=== PATIENT | female | born 1950 | race Caucasian/White ===

== ENCOUNTER → 2016-11-16 | Outpatient (CLI) | payer OTHER ==
[~2016-11-16] MED LIST: ASPEC81 PO; ATEN-173 PO; B-COTAB18 PO; CLC100 PO; CLTP PO; COEN10CA2 PO; DILT240C57 PO; FRC PO; HYDR25TA4 PO; LOSA50TA6 PO; LPT/40 PO; MAGN1TAB19 PO; MISCCAP80 PO; MULT-513 PO; OMEG10007 PO; TRAZ50TA35 PO
--- NOTE | 2016-11-16 12:44 | MAMMOGRAPHY REPORT ---
BILATERAL DIGITAL SCREENING MAMMOGRAM WITH CAD: 11/16/2016 CLINICAL HISTORY: Routine screening. TECHNIQUE: Current study was also evaluated with a Computer Aided Detection (CAD) system. Bilateral CC and MLO views were obtained. COMPARISON: Comparison is made to exams dated: 11/16/2015 mammogram, 09/06/2014 mammogram, 09/03/2013 m ammogram, 09/01/2012 mammogram, 08/14/2011 mammogram, and 08/07/2010 mammogram - [facility]ter. BREAST COMPOSITION: There are scattered areas of fibroglandular density in both breasts. FINDINGS: No suspicious masses, calcifications, or areas of architectural distortion are noted in ei ther breast. There has been no significant interval change compared to prior exams. IMPRESSION: ACR BI-RADS CATEGORY 1: NEGATIVE There is no mammographic evidence of malignancy. A 1 year screening mammogram is recommended. The pa tient will receive written notification of the results. Approximately 10% of breast cancers are not detected with mammography. A negative mammographic report should not delay biopsy if a clinically suggestive mass is present. Desi Carlson M.D. ah/:11/16/2016 09:57:41 Armature Connector: Librado MCNEIL(R)(M), [facility] letter sent: Normal 1/2 BI-RADS Code: ACR BI-RADS Category 1: Negative
== END | disposition home or self-care (01) ==
LOC: C.MAMM 08:58
PROVIDERS: ATTEND Physician Assistant
DX: Z12.31 Encounter for screening mammogram for malignant neoplasm of breast (principal)

== ENCOUNTER 2024-03-03 10:39 | Observation (INO) ==
--- NOTE | 2024-01-27 14:40 | PAT Medication Instructions ---
Medication Instructions Date of Service January 27, 2024 Home Medications atorvastatin 40 mg tablet 40 mg PO HS diltiazem HCl 240 mg capsule,extended release 24 hr 240 mg PO QAM aspirin 81 mg tablet,delayed release (Adult Aspirin Regimen) 81 mg PO QPM carvedilol 12.5 mg tablet 12.5 mg PO BID furosemide 20 mg tablet (Lasix) 20 mg PO UD oxybutynin chloride 5 mg tablet 5 mg PO HS terazosin 1 mg capsule 1 mg PO HS cholecalciferol (vitamin D3) 50 mcg (2,000 unit) capsule (Vitamin D3) 50 mcg PO QAM lorazepam 0.5 mg tablet 0.25 mg PO HS PRN Sleep losartan 100 mg tablet 100 mg PO QAM melatonin 1 mg tablet 1 mg PO HS ondansetron 4 mg disintegrating tablet 4 mg PO Q8H PRN Nausea And Vomiting ASK your prescriber and surgeon aspirin 81 mg tablet,delayed release (Adult Aspirin Regimen) 81 mg PO QPM DO NOT take the morning of surgery furosemide 20 mg tablet (Lasix) 20 mg PO UD cholecalciferol (vitamin D3) 50 mcg (2,000 unit) capsule (Vitamin D3) 50 mcg PO QAM losartan 100 mg tablet 100 mg PO QAM Take morning of surgery With a small sip of water, OTHERWISE NOTHING TO EAT OR DRINK AFTER MIDNIGHT: diltiazem HCl 240 mg capsule,extended release 24 hr 240 mg PO QAM carvedilol 12.5 mg tablet 12.5 mg PO BID ondansetron 4 mg disintegrating tablet 4 mg PO Q8H PRN Nausea And Vomiting (if needed) Take evening before surgery atorvastatin 40 mg tablet 40 mg PO HS carvedilol 12.5 mg tablet 12.5 mg PO BID oxybutynin chloride 5 mg tablet 5 mg PO HS terazosin 1 mg capsule 1 mg PO HS lorazepam 0.5 mg tablet 0.25 mg PO HS PRN Sleep (if needed) melatonin 1 mg tablet 1 mg PO HS ondansetron 4 mg disintegrating tablet 4 mg PO Q8H PRN Nausea And Vomiting (if needed) Other Notes If you have any questions please call us at [phone] or [phone] or [phone] or [phone]
--- NOTE | 2024-02-03 09:52 | Anesthesiology Consultation ---
Date of Service February 03, 2024 Assessment & Plan (1) Encounter for pre-operative examination: - cardiology office visit 12/20/23 [facility]: "...labile hypertension, palpitations consistent with symptomatic atrial and ventricular ectopy...odd sensation of chest pain when lying flat, localized under the left breast...subsides when the patient changes position to either side...occasional swelling in the legs...hypertension well controlled...occasional low readings associated with feeling "fluttery" continue current medication regimen...no associated exertional chest pain or shortness of breath...no immediate intervention required, but patient should monitor symptoms and report any changes-likely MSK...knee replacement...no additional cardiac workup required as recent echocardiogram was normal and patient has no concerning cardiac symptoms...low risk for perioperative cardiac complications..." - Outpatient joint assessment: Patient is currently scheduled for inpatient pathway. If re-evaluated and patient/surgeon requests outpatient pathway, patient is not ideal candidate for outpatient joint program from anesthesia standpoint pending surgeon's office assessment of pt motivation/support/completion of same day joint program preop requirements. Chart Review Chart Review: Acceptable Risk for Surgery and Patient seen in Pre Admission Testing Teaching & Discussion Pre-Anesthesia Teaching/Discussion Notes: Instructed NPO after midnight before surgery, except medications with 15 cc of water. Medication instructions provided according to the PAT guidelines. History Surgery Operation Date: 03/03/24 11:00 Proposed Procedures p Right Total Knee Arthroplasty - Jaden August MD Height/Weight Height: 5 ft 1 in Weight: 87.4 kg Allergies Allergy/AdvReac Type Severity Reaction Status Date / Time moxifloxacin Allergy Intermediate HIVES Verified 01/22/24 08:24 Penicillins Allergy Intermediate HIVES Verified 01/22/24 08:24 Sulfa (Sulfonamide Allergy Intermediate Hives Verified 01/22/24 08:24 Antibiotics) sulfamethoxazole [Bactrim] Allergy Intermediate HIVES Verified 01/22/24 08:24 trimethoprim [Bactrim] Allergy Intermediate HIVES Verified 01/22/24 08:24 Medications Home Medications Medication Instructions Recorded Confirmed Last Taken atorvastatin 40 mg tablet 40 mg PO HS 06/06/21 01/22/24 06/08/21 diltiazem HCl 240 mg 240 mg PO QAM 06/06/21 01/22/24 06/09/21 capsule,extended release 24 hr aspirin 81 mg tablet,delayed 81 mg PO QPM 11/21/23 01/22/24 Unknown release (Adult Aspirin Regimen) carvedilol 12.5 mg tablet 12.5 mg PO BID 11/21/23 01/22/24 Unknown furosemide 20 mg tablet (Lasix) 20 mg PO UD 11/21/23 01/22/24 Unknown oxybutynin chloride 5 mg tablet 5 mg PO HS 11/21/23 01/22/24 Unknown terazosin 1 mg capsule 1 mg PO HS 11/21/23 01/22/24 Unknown cholecalciferol (vitamin D3) 50 50 mcg PO QAM 01/22/24 01/22/24 Unknown mcg (2,000 unit) capsule (Vitamin D3) lorazepam 0.5 mg tablet 0.25 mg PO HS PRN Sleep 01/22/24 01/22/24 Unknown losartan 100 mg tablet 100 mg PO QAM 01/22/24 01/22/24 Unknown melatonin 1 mg tablet 1 mg PO HS 01/22/24 01/22/24 Unknown ondansetron 4 mg disintegrating 4 mg PO Q8H PRN Nausea And Vomiting 01/22/24 01/22/24 Unknown tablet Past Medical History Medical History Arthritis Depression situational Fuchs' corneal dystrophy bilat eyes History of COVID-19 (~07/2023) denies hospitalization, no residual symptoms History of diverticulitis last flare 2013 History of kidney cancer dx ~2016, sx only Hyperlipidemia Hypertension controlled, stable per pt OAB (overactive bladder) Periodic heart flutter f/u dr. farris, [facility] Sleep apnea CPAP-compliant Patient denies h/o stroke, seizures, heart attack, heart failure, DM, blood clots/DVTs or blood transfusions. Exercise / Class Metabolic Activity II 4-5 Yardwork/Stairs/Walk up hill (denies chest discomfort or shortness of breath with one flight of stairs) Past Family History Family History Sister Family history of diabetes mellitus Other No family history of adverse response to anesthesia Past Surgical History Surgical History History of arthroscopy left knee History of bilateral tubal ligation History of bunionectomy left History of cataract surgery rt/lt History of colonoscopy History of dilatation and curettage History of hysterectomy History of kidney surgery right, ~2016, to remove a small portion of kidney due to cancer History of tonsillectomy History of tooth extraction History of total hip arthroplasty right Kidney tumor tumor removed S/P thyroid biopsy ~2019, benign Past Anesthesia History Other (crying post-op; sister difficult intubation) History of PONV History of PONV and Hx of Motion Sickness Social History Smoking Status: Former smoker tobacco type: cigarettes Do You Dip or Chew Tobacco: No Smoking End Date: 40 years ago Hx Alcohol Use: Yes Alcohol type: wine alcohol intake frequency: holidays/special occasions only Hx Substance Use: No substance use type: does not use Review of Systems Patient denies chest pain, shortness of breath, dyspnea on exertion, reflux, fever, chills, cough, wheezing, or palpitations. Physical Exam Vital Signs Vitals BP 145/81 P 65 TEMP 97.9 SP02 96% on RA RESP 18 Physical Patient resting comfortably in chair in no acute distress, alert and oriented, responding appropriately throughout visit Full cervical extension range of motion without pain TMD < 3 finger breadths Mallampati Score 2 Dentition: several caps/crowns, denies chipped or loose teeth, implants or bridges Lungs: normal respiratory effort. Good air movement, clear throughout to auscultation, no adventitious breath sounds Cardiac: regular rate and rhythm, no murmurs noted Carotid arteries: negative bruit bilat Lab Results Anesthesia Preop Results Results Anesthesia Widget: WBC 7.10 K/ul (4.8-10.8) 02/03/24 Hgb 12.8 g/dl (12.0-16.0) 02/03/24 Hct 38.5 % (37.0-47.0) 02/03/24 Plt 290 K/uL (130-400) 02/03/24 Na 139 mmol/L (136-145) 02/03/24 K 4.6 mmol/L (3.5-5.1) 02/03/24 Cl 104 mmol/L (98-107) 02/03/24 CO2 29 mmol/L (21-32) 02/03/24 BUN 23 mg/dl (6-23) 02/03/24 Creat 0.84 mg/dl (0.6-1.2) 02/03/24 Glucose Level 82 mg/dl (70-99(Fasting)) 02/03/24 PT 10.9 Seconds (9.0-12.0) 02/03/24 PTT 29 Seconds (21-31) 02/03/24 INR 1.0 (0.9-1.1) 02/03/24 Blood Type O Positive 02/03/24 Antibody Screen NEGATIVE 02/03/24 Testing Electrocardiogram Date: 12/20/23 NSR, rate 73 bpm Incomplete RBBB Chest X-Ray Date: 02/03/24 No acute chest disease. Cardiomegaly is noted. Echocardiogram Date: 02/14/23 EF 55-59% Normal LV wall motion Mild cLVH Mild mitral regurgitation Mild tricuspid regurgitation PASP 35-40 mmHg
[~2024-03-03 10:39] MED LIST changes: -ASPEC81 PO; -ATEN-173 PO; -B-COTAB18 PO; +BUPIVACAINE 0.5 % 5 MG/1 ML PF 10ML VIAL ONE; -CLC100 PO; -CLTP PO; -COEN10CA2 PO; -DILT240C57 PO; -FRC PO; -HYDR25TA4 PO; -LOSA50TA6 PO; -LPT/40 PO; -MAGN1TAB19 PO; -MISCCAP80 PO; -MULT-513 PO; -OMEG10007 PO; +ROPIVACAINE 0.5% 5 MG/ML 30 ML VIAL ONE; -TRAZ50TA35 PO
[2024-03-03] MEDS ORDERED: PROPOFOL IV EMULSION 10 MG/ML 100 ML VIAL IV ONE (11:01)
[2024-03-03] MEDS ORDERED: MIDAZOLAM HCL 1 MG/ML 2ML VIAL ONE (11:01)
[2024-03-03] MEDS ORDERED: fentaNYL citrate PF 100 MCG/2 ML VIAL ONE (11:01)
[2024-03-03] MEDS: CeleBREX 200 MG CAP PO SCH (11:03)
[2024-03-03] MEDS: ACETAMINOPHEN 500 MG TAB PO SCH ×2 (11:30→20:43)
[2024-03-03] MEDS: METOCLOPRAMIDE HCL 10 MG TABLET PO SCH (11:31)
[2024-03-03] MEDS: LR 60ML/HR IV SCH (11:31)
[2024-03-03] MEDS: LR 500ML BOLUS, THEN 15ML/HR IV SCH (11:31)
[2024-03-03] MEDS: FAMOTIDINE 20 MG TAB PO SCH (11:31)
[2024-03-03] MEDS ORDERED: ePHEDrine sulfate 50 MG/ML AMP IV PRN (12:05)
[2024-03-03] MEDS ORDERED: ONDANSETRON INJ 2 MG/ML 2 ML VIAL IV PRN (12:05)
[2024-03-03] MEDS ORDERED: ATROPINE SULFATE 0.1 MG/ML 10ML SYR IV PRN (12:05)
[2024-03-03] MEDS ORDERED: fentaNYL citrate PF 100 MCG/2 ML VIAL IV PRN (12:05)
--- NOTE | 2024-03-03 13:01 | History & Physical Bridge Note ---
Date of Service March 03, 2024 History & Physical Bridge Note I have examined the patient, reviewed the History & Physical and in the interval since the performance of the History & Physical I have noted the following changes of clinical significance: no changes noted
[2024-03-03] MEDS: ceFAZolin 2000MG 2,000 MG/15 ML SYR IV SCH ×2 (13:08→20:44)
[2024-03-03] MEDS ORDERED: PROPOFOL IV EMULSION 10 MG/ML 20 ML VIAL IV ONE (13:16)
[2024-03-03] MEDS: ORTHO JOINT ANESTHETIC ONE (13:28)
[2024-03-03] MEDS: ROPIV 0.5% 246mg, Ketorolac 30mg, EPINEPHrine 0.5mg in NSS INFIL SCH (13:28)
[2024-03-03] MEDS: TRANEXAMIC ACID 1,000 MG **IV Intra-op IV SCH (13:42)
--- NOTE | 2024-03-03 14:33 | Operative Report ---
PG Post Operative Report Pre & Post Diagnosis Operation Date: 03/03/24 12:30 Pre-Op Diagnosis: Right Knee Degenerative Joint Disease Post-Op Diagnosis: Right Knee Degenerative Joint Disease I identified the patient and participated in the time-out.: Yes Procedure Operation Date: 03/03/24 12:30 Actual Procedures p Right Total Knee Arthroplasty(Right) - Jaden August MD Surgeon Jaden August MD Turnaround Planner SOFIE Kraft Estimated Blood Loss 30 Findings Consistent with Post-Op Diagnosis Operative findings were advanced right knee DJD. She had the extensive grade 4 [id number] disease most severe in the medial compartment. She has slight varus deformity to her knee. Small to moderate-sized knee effusion. Specimens Right knee sent for pathology. Anesthesia Type Spinal MAC Complications none Disposition Accompanied Patient To Recovery: No Indications The patient is a 73-year-old female is had a long history of bilateral knee pain discomfort described to gotten worse over time. She been through extensive conservative treatment over the past several years which became less successful over time. The right knee was hurt more than the left. X-rays show advanced knee arthritis. She elected proceed with right total knee arthroplasty. Description of Procedure Operative implants consist of: 1 Biomet Vanguard size 62.5 right posterior stabilized femoral component. 2. Biomet size 63 tibial tray. 3. 10 mm posterior stabilized polyethylene insert. 4. 31 x 8 all poly patella. The patient was taken the op room, identified, placed on the operating table in supine position. All contact areas were appropriately padded. IV antibiotics fibra anesthesia team. A spinal anesthetic and adductor canal block had been Weida in the holding area. A Noyola catheter was placed in sterile fashion. Right thigh turn was then placed to the right lower extremity was then prepped and draped in usual sterile fashion. The right leg was elevated and exsanguinated with use of an Esmarch and the turn was placed at 300 mmHg. An anterior approach to the right knee was then performed to longitudinal incision centered over the patella. Sharp dissection was got through subcutaneous tissue down the extensor mechanism. A medial parapatellar arthrotomy incision was made. Some subperiosteal dissection was carried out medially. The fat pad was resected from his patella tendon. The lateral patellofemoral ligament was released. Patella subluxated laterally and the knee was flexed. The osteophytes taken off distal femur. ACL and PCL were then released from distal femur the tibia subluxated anteriorly. The external tibial alignment jig was then placed on the anterior face the tibia and adjusted 12 mm medially. The proximal tibial cut was made remove about 2 mm from the medial side. The tibia sized to a size 63. Attention drawn the femur. The distal femur then with a sharp drill. Intramedullary canal was suction. A right 5 degree valgus cutting guide was placed. The distal femoral cutting block was pinned in place. This femoral cut was made to take an additional 3 mm of bone off distal femur. The femur was then sized to a size 62.5. The AP cutting block was pinned parallel to the epicondylar axis which was 3 degrees of external rotation. The anterior cut, anterior chamfer, posterior cut, posterior chamfer cuts were made. The box cutting guide was placed and adjusted slightly laterally. The box cut was made. The knee was flexed. The remnants of the medial and lateral menisci were excised. The osteophytes taken off the posterior aspect the femur. A trial femoral component was placed. The tibial tray was pinned Mariluz external rotation and the drill and stem punch were used to create defect in proximal tibia for the tibial tray. The knee was then trialed and the 10 mm insert fit most appropriately. Attention drawn the patella. The patella was cleaned of all soft tissues. Patella thickness measured 20 mm in thickness was cut down to 13. Was sized to a size 31 patella. The lug holes were drilled for 31 patella. The lateral osteophytes removed. Patella button was placed. Knee was taken through range of motion patella tracked nicely with no thumbs test. Attention drawn to placing permanent components. All trial components were removed. A bone plug was placed into the distal femur limit blood loss. Double batch Palacos G cement was mixed. A Biomet Vanguard size 62.5 right posterior stabilized femoral component, a size 63 tibial tray, a 10 mm posterior stabilized polyethylene insert, and a 31 x 8 all poly patella then cemented in place. The knee was brought out into full extension till cement hardened. Final cement check was then performed. The pericapsular tissues were injected with total of 100 cc of Ortho mix. The patient did receive 1 g of tranexamic acid. The tourniquet was then let down for final tourniquet time 49 minutes. Hemostasis assured use electrocautery. Extensor Meclomen then closed with combination 1 PDS suture #1 Vicryl suture in a [id number] fashion. Extensor Meclomen checked found to be intact with the subcutaneous tissue then closed with 2 Dexon suture in a buried interrupted fashion skin was closed skin elida. Leg was then cleaned and dried and a sterile dressing was Xeroform, 4 fours, sterile cast padding, Kervin bandage were applied. Patient then transferred to the recovery room in stable condition. The patient tolerated the procedure well and there were no complications. Aj Kraft, my physician urology physician assistant, was present for the entire procedure. His assistance was essential and required for appropriate patient positioning, prepping and draping, surgical exposure, performing the technical details of the operation, placement the implants, closure of the wound, and placement of the sterile bandage. I attest to the content of the Intraoperative Record and any orders documented therein. Any exceptions are noted below.
--- NOTE | 2024-03-03 14:54 | XRay Report ---
XR knee RT 1 or 2V routine HISTORY: 73 years-old Female Surgical Post Op right knee arthroplasty COMPARISON: Radiographs 02/03/2024 TECHNIQUE: 2 views of the right knee FINDINGS: Total arthroplasty with patellar resurfacing. Anterior midline skin elida with expected postoperati ve soft tissue swelling and deep tissue air. No acute fracture or unexpected opaque foreign bodies. IMPRESSION: Total joint arthroplasty with expected postoperative changes. ACT 112: Negative or not required by law. The above report was generated using voice recognition software. It may contain grammatical, syntax o r spelling errors. Electronically signed by: Hernandez Delvalle M.D. 03/03/2024 2:52 PM
[2024-03-03] MEDS ORDERED: ALUMINUM/MAGNESIUM SUSP 30 ML UDC PO PRN (15:33)
[2024-03-03] MEDS ORDERED: MAGNESIUM HYDROXIDE SUSP 30 ML UDC PO PRN (15:33)
[2024-03-03] MEDS ORDERED: HYDROmorphone INJ 0.5 MG/0.5 ML SYR IV PRN (15:33)
[2024-03-03] MEDS ORDERED: NALOXONE HCL 0.4 MG/1 ML VIAL/CARP IV PRN (15:33)
[2024-03-03] MEDS ORDERED: bisacodyL 10 MG SUPP PR PRN (15:33)
--- NOTE | 2024-03-03 15:41 | Anesthesiology Progress Note ---
Date of Service March 03, 2024 Anesthesia Post Procedure Vital Signs Vital Signs: Temp Pulse Pulse Resp BP BP Pulse Ox 03/03/24 15:34 97.5 F L 52 L 16 155/78 H 99 03/03/24 15:20 59 L 20 143/84 H 99 03/03/24 15:10 59 L 19 142/77 H 98 03/03/24 15:00 97.7 F 55 L 20 136/70 94 03/03/24 14:50 56 L 19 127/69 94 03/03/24 14:40 62 18 126/75 96 03/03/24 14:32 97.2 F L 70 24 112/82 96 03/03/24 11:15 98.6 F 75 24 183/84 H 98 O2 Del Method 03/03/24 15:34 Room Air 03/03/24 15:20 Room Air 03/03/24 15:10 Room Air 03/03/24 15:00 Room Air 03/03/24 14:50 Room Air 03/03/24 14:40 Room Air 03/03/24 14:32 Room Air 03/03/24 11:15 Room Air Transfer of Care Handoff Completed per policy Notes Mental Status: alert / awake / arousable and participated in evaluation Patient Amnestic to Procedure: Yes Nausea / Vomiting: adequately controlled Pain: adequately controlled Airway Patency, RR, SpO2: stable & adequate BP & HR: stable & adequate Hydration State: stable & adequate Neuraxial Anesthesia: was administered and sensory block is resolving Anesthetic Complications: no major complications apparent and Pt Satisfied with anesthetic care
[2024-03-03] MEDS: KETOROLAC TROMETHAMINE 15 MG/ML VIAL IV SCH (17:09)
[2024-03-03] MEDS: carvediloL 12.5 MG TAB PO SCH (17:15)
[2024-03-03] MEDS: ASCORBIC ACID 500 MG TAB PO SCH (17:16)
--- OUTSIDE RECORDS SUMMARY | 2024-03-03 18:31 | External Medical Summary | Summary of Care ---
Author Name Unknown Organization [facility] [address] [facility] [address] Phone [phone] Care Team Providers Care Neurology Professor Name Role Phone Kerry Wise DO Primary Care Provider Encounter Details Date Type Department Care Team (Late st Contact Info) Description 02/02/2024 Result Scan Unspecified Department Kathy Fajardo DO [address] [place] [address] <No scans attached> Allergies Active Allergy Reactions Criticality Noted Date Comments Alendronate Muscle pain 05/30/2017 Muscle pain in arms came on very quickly per patient Hydrochlorothiazide 05/24/2022 Hyponatremia Moxifloxacin Unknown Low 07/29/2001 Avelox Penicillins Hives Medium 08/28/1999 Sulfa Antibiotics Hives Low 03/08/2000 Venlafaxine Hydrochloride Hives Low 08/28/1999 documented as of this encounter (statuses as of 02/21/2024) Medications triamcinolone acetonide (ARISTOCORT) 0.1 % cream Apply topically to affected area 2 times a day. To affected area. 15 g 5 8 Active Denosumab 60 MG/ML Subcutaneous SolutionIndicati ons:every 6mos Inject 60 mg under the skin once. Active Elastic Bandages & Supports (MEDICAL COMPRESSION STOCKINGS) MISCIndications: Varicose veins of both legs with edema 20mm to 30mm Knee high Wear during the day and take off at night for swelling. 2 Each 9 Active Aspirin EC 81 MG Oral Tablet Delayed Release Take by mouth 1 Tablet in the morning. 2 Active Additional Information Patient taking differently:81 mg Oral Daily(AM),Takes in the evening., Reported on 02/11/2024 Vitamin D (Cholecalciferol ) 50 MCG (2000 UT) Oral Capsule Take 2,000 Units by mouth in the morning. Active Melatonin 1 MG Oral Tablet Take 1 Tablet by mouth at bedtime. Active Triamcinolone Acetonide 0.5 % External Cream (Aristocort)Hyacinth cations:Skin lesion Apply topically to affected area 2 times a day. To affected area. 15 g 1 4 Active oxyBUTYnin Chloride ER 5 MG Oral Tablet Extended Release 24 Hour (Ditropan XL) Take 1 Tablet by mouth in the morning. 90 Tablet 3 4 Active Additional Information Patient taking differently:5 mg Oral Daily(AM),Takes in the evening., Reported on 02/11/2024 dilTIAZem HCl ER Beads 240 MG Oral Capsule Extended Release 24 HourIndications: HTN, goal below 140/90 Take 1 Capsule by mouth in the morning. 90 Capsule 3 4 Active Terazosin HCl 1 MG Oral Capsule (Hytrin) Take 1 Capsule by mouth at bedtime. 90 Capsule 3 4 Active Ketoconazole 2 % External CreamIndications :Cutaneous candidiasis Apply topically to affected area 2 times a day for 14 days. Apply to vulva 30 g 1 4 Active Ondansetron HCl 4 MG Oral TabletIndication s:Nausea without vomiting Take 1 Tablet by mouth every 8 hours as needed for Nausea. 30 Tablet 4 Active Carvedilol 12.5 MG Oral Tablet (Coreg) Take 1 Tablet by mouth in the morning and 1 Tablet before bedtime. 204 Tablet 3 4 Active Atorvastatin Calcium 40 MG Oral Tablet (Lipitor)Indicat ions:Asymptomati c carotid artery stenosis, unspecified laterality,Dysli pidemia, goal LDL below 100 Take 1 Tablet by mouth at bedtime. 90 Tablet 3 4 Active Furosemide 20 MG Oral Tablet (Lasix)Indicatio ns:HTN, goal below 140/90 Take 1 Tablet by mouth once a day on Saturday, Saturday, and Saturday only. 40 Tablet 3 4 Active documented as of this encounter (statuses as of 02/21/2024) Active Problems Problem Noted Date Diagnosed Date ARNALDO on CPAP 02/11/2024 Prediabetes 01/06/2024 Overview: Per Prediabetes protocol HTN, goal below 140/90 12/25/2023 Multiple thyroid nodules 03/12/2023 Thyroid nodule 03/07/2022 Migraine with aura, not intr actable, without status migrainosus 12/08/2019 History of kidney cancer 12/23/2017 It band syndrome, unspecified laterality 018 Senile osteoporosis 05/15/2017 Fatty liver 02/04/2017 Vitamin D insufficiency 11/09/2016 Hx of atypical nevus 06/16/2015 Hx of actinic keratosis 06/16/2015 Severe obesity with body mas s index (BMI) of 35.0 to 39.9 with serious comorbidity 02/15/2015 Overview (12/11/2017): ICD-10 update of inactive diagnosis Palpitations 05/27/2014 HTN, goal below 150/90 01/08/2014 Dyslipidemia, goal LDL below 100 06/11/2005 GENERAL OSTEOARTHROSIS Diverticulosis of colon documented as of this encounter (statuses as of 02/21/2024) Resolved Problems Problem Noted Date Diagnosed Date Resolved Date Adjustment disorder with depressed mood 02/23/2022 02/23/2022 Prediabetes 06/08/2019 02/07/2023 Overview: Per Prediabetes protocol Classical migraine without i ntractable migraine 04/24/2019 10/03/2019 Biceps tendinitis of right shoulder 12/24/2017 12/28/2018 Need for shingles vaccine 10/07/2017 Cancer of kidney 09/03/2013 12/23/2017 HTN, goal below 140/90 02/23/201305/23 Fibrous papule of nose 10/20/201203/19 Diffuse photoaging of skin 10/20/2012 0 09/12/2016 Other seborrheic keratosis 10/20/2012 0 09/12/2016 Neoplasm of genitourinary organs 10/12/2010 10/24/2016 BMI 35-39 ISOLATED (SEE ACTUAL BMI) 08/08/2009 10/24/2016 Overview (08/08/2009): Per Obesity Protocol, #19 Menopause 03/19/2017 documented as of this encounter (statuses as of 02/21/2024) Immunizations Name Administration Dates Next Due COVID-19 mRNA, LNP-s, No Pre serve, 2-Dose Series (Moderna) 04/15/2020,03/19/2020 COVID-19, MRNA-LNP, PF, 30 M CG/0.3 mL, 12 YRS AND ABOVE, IM (PFIZER-Comirnaty) 12/03/2023 COVID-19, MRNA-LNP, PF, 50 M CG/0.5 mL, 12 YRS AND ABOVE, IM (MODERNA-Spikevax) 12/03/2022 COVID-19, mRNA, LNP-s, PF, B ooster, 100mcg/0.5mg (Moderna) 07/17/2021,12/26/2020 Covid-19, Mrna, Lnp-s, Pf, B ivalent, 30 Mcg, IM, 12 yrs and above (Pfizer) 07/30/2022,12/19/2021 MMR - Measles/Mumps/Rubella Vaccine 11/15/2017,0 09/02/2017 PPD 10/29/2014, 0,06/24/2007,06/13 Pneumococcal Conjugate Vacc, 13 Valent (Prevnar) 08/31/2014 Pneumococcal Conjugate Vacci ne, 20-valent ([id number]) 01/07/2024 Pneumococcal Polysaccharide PPV23 (Pneumovax) 05/25/2013 RSV Vac., Recomb, Adjuvant, PF,0.5 Ml (Arexvy) 12/31/2023 Seasonal Influenza Vac., MDV , IM, 0.5 mL (Fluzone) 11/23/2013,12/01/2012,12/17/2011,12/21,12/28/2009,12/17/2008,12/19/2007 ,01/02/2006 Seasonal Influenza, High Dos e, Trivalent, PF, IM (Fluzone HD) 11/27/2023 Seasonal Influenza, PF, 6 M & above, IM , (FluLaval or Fluzone) 12/01/2018,12/01/2018,11/25/2017,11/23 Seasonal Influenza, Quadriva lent Hd (Fluzone Hd) 11/29/2022,12/15/2021 Seasonal Influenza, Quadriva lent Hd, 65+ Yrs 11/25/2020 Seasonal Influenza, Quadriva lent, No Preserve, IM 12/05/2015,12/10/2014 Seasonal Influenza, Trivalen t, Adjuvanted, 65+ YRS, PF, (Fluad) 11/30/2019 TD - Tetanus/Diptheria (ADULT) 11/21/2023 TD, Preservative Free 09/02/2017 TDAP, Age 7 and older, IM (Adacel) 08/16/2007 Varicella Zoster Vaccine (Adult) 06/22/2011 Zoster Vaccine Recombinant (Shingrix) 08/22/2018 ,06/03/2018,05/22/2018 documented as of this encounter Social History Tobacco Use Types Packs/Day Years Used Date Smoking Tobacco: Former Cigarettes 1 10 0 02/25/1969 - 02/25/1979 Passive Smoke Exposure: Past Smokeless Tobacco: Never Alcohol Use Standard Drinks/Week Comments Yes 0 (1 standard drink = 0.6 oz pure alcohol) moderation, glass of wine 3-4 days a week PHQ-2 Answer Date Recorded PHQ Adult Total Score 1 02/11/2024 Hunger Vital Sign Answer Date Recorded Within the past 12 months, y ou worried that your food would run out before you got the money to buy more. Never true 03/08/19 24 Within the past 12 months, t he food you bought just didn't last and you didn't have money to get more. Never true 03/08/2023 Childcare Answer Date Recorded Do you feel overwhelmed with taking care of a child, family member or friend? No 03/08/2023 Does your family need help f inding childcare? (Household - for ages 0-17 years) Not on file 03/08/2023 Clothing Answer Date Recorded Have you been unable to get clothing when it was really needed? No 03/08/2023 Is your family able to get c lothes or diapers when needed? (Household - for ages 0-17 years) Not on file 03/08/2023 Personal Safety Answer Date Recorded Do you feel unsafe or have concerns for your saf ety? No 03/08/2023 Do you have concerns for you r family's safety? (Household - for ages 0-17 years) Not on file 03/08/2023 Utilities Answer Date Recorded Do you have trouble paying y our heating, water, or electric bill? No 03/08/2023 Is your family able to pay t he heat, water, or electric bill? (Household - for ages 0-17 years) Not on file 03/08/2023 Does your family have access to good internet? (Household - for ages 0-17 years) Not on file 03/08/2023 Employment Status Answer Date Recorded Are you unemployed or without regular income? No 03/08/2023 Does the household have a [facility] source [facility] income? (Household - for ages 0-17 years) Not on file 03/08/2023 Social Connections Answer Date Recorded How often do you feel lonely or isolated from th ose around you? Rarely 03/08/2023 Financial Resource Strain Answer Date R ecorded Do you have any trouble payi ng for your medications, or do you think you might in the future? No 03/08/2023 Does your family have troubl e paying for medicine? (Household - for ages 0-17 years) Not on file 03/08/2023 Transportation Needs Answer Date Record ed READ ONLY Do you have troubl e getting a ride to medical visits or work? Never True 03/08/2023 Does your family have a hard time getting a ride to doctors visits? (Household - for ages 0-17 years) Not on file 03/08/2023 Has lack of transportation k ept you from medical appointments, meetings, work, or from getting things needed for daily living? Check all that apply. (Adult - for ages 18 years and over) Not on file 03/08/2023 Do you (or your family) have trouble finding or paying for a ride (transportation)? (Household - for ages 0-17 years) Not on file 03/08/2023 Housing Stability Answer Date Recorded Do you currently live in a s helter or have no steady place to sleep at night? No 03/08/2023 READ ONLY Do you think you a re at risk of becoming homeless? No 03/08/2023 Does your family worry about paying for your home or becoming homeless? (Household - for ages 0-17 years) Not on file 0 03/08/2023 Are you homeless or worried that you might be in the future? (Adult - for ages 18 years and over) Not on file Are you (or your family) kailash eless or worried that you might be in the future? (Household - for ages 0-17 years) Not on file Food Insecurity Answer Date Recorded Do you need food for this week? No 03/08/2023 Are you able to get enough f ood for your family? (Household - for ages 0-17 years) Not on file 03/08/2023 Does your family need food t his week? (Household - for ages 0-17 years) Not on file 03/08/2023 Do you always have enough fo od for your family? 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 Not on file Not on file Not on file documented as of this encounter Plan of Treatment Upcoming Encounters Date Type Department Care Team (Late st Contact Info) Description 05/26/2024 9:30 AM EDT Office Visit Cardiology, [facility] [address] [place] [address] Tyron Echeverria MD [address] [place] [address] 06/15/2024 9:45 AM EDT Office Visit Dermatology [facility] [address] [place], [place] [address] Tai Quach MD 200 [facility] [place], [place] [address] 07/10/2024 1:00 PM EDT [facility] [address] [place] [phone] Kathy Fajardo, [address] [place] [address] 07/13/2024 1:30 PM EDT Nurse Only Rheumatology [address] [place] [address] Pf, Nurse Rheum [address] [place] [address] [place] [address] 01/25/2025 1:40 PM EST Office Visit Rheumatology [address] [place] [address] Herbie Lorenzo MD [address] [place] [address] [place] [address] Health Maintenance Due Date Last Done Comments Adult Wellness Visit 07/03/2023 07/02/2022 Albumin/Creatinine Ratio 11/03/2024 11/03/2021 GFR 01/02/2025 01/03/2024, 0202/2023, 03/12/2023, Additional history exists HbA1c 01/02/2025 01/03/2024, 03/28, 12/26/2020, Additional history exists Depression Screening 02/10/2025 02/11/2024 DXA Scan 03/06/2025 03/06/2023, 02/25, 02/06/2021, Additional history exists DTap/Tdap Vaccines (4 - Td or Tdap) 11/20/2033 11/21/2023, 09/02/2017, 08/16/2007, Additional history exists Fecal Occult Blood Test Discontinued 12/21/2003 Zoster Vaccines Completed 08/22/2018, 04/0 10/2018, 05/22/2018, Additional history exists Colonoscopy Discontinued 06/09/2021 Colorectal Cancer Screening Discontinued Influenza Vaccine (FLU shot) Completed 11/27/2023, 11/27/2023, 11/29/2022, Additional history exists COVID-19 Vaccine Completed 12/03/2023, 10/2022, 07/30/2022, Additional history exists Pneumococcal Vaccine: 50+ Years Completed 01/07/2024, 08/31/2014, 05/25/2013 VITAMIN D LEVEL ONCE IN A LIFETIME-USE SMARTSET# [id number] Completed 01/10/2024, 11/06/2022, 04/12/2022, Additional history exists Cologuard Discontinued HPV (Gardasil) Vaccine Aged Out No lo nger eligible based on patient's age to complete this topic Hepatitis B Vaccine Aged Out No longe r eligible based on patient's age to complete this topic MENINGOCOCCAL (MENACTRA/MENVEO) Aged Out No longer eligible based on patient's age to complete this topic Sigmoidoscopy Discontinued documented as of this encounter Medical Devices Not on filedocumented as of this encounter Procedures Procedure Name Priority Date/Time Associated Diagnosis Comments PROCEDURE SCANNED RESULT 02/02/2024 documented in this encounter Results * PROCEDURE SCANNED RESULT (02/02/2024) 02/02/2024 Kathy Fajardo DO SURGERY Final Resu lt documented in this encounter Advance Directives Documents on File Type Date Recorded Patient Engineer Automated Equipment Expl anation Power of [place] 06/28/2022 POWER OF A TTORNEY * Full Code (Latest Code Status on File) Date Activated Date Inactivated Comments 11/29/2010 4:27 PM 12/02/2010 2:57 PM This order r eflects the patients wishes and were consensually agreed upon. Care Teams Neurology Professor Relationship Specialty Start Date End Date Kerry Wise DO [address] [place] [address] PCP - General Family Medicine 09/11/23 documented as of this encounter
--- OUTSIDE RECORDS SUMMARY | 2024-03-03 18:31 | External Medical Summary | Summary of Care ---
Author Name Unknown Organization [facility] Address [address] [place] [address] Phone [phone] Care Team Providers Care Crime Scene Technician Name Role Phone Kerry Wise DO Primary Care Provider Reason for Visit * Reason Onset Date Comments Test Results 02/11/202402/12 Encounter Details Date Type Department Care Team (Late st Contact Info) Description 02/11/2024 Telephone Family Practice [address] [facility] [address] [place] [address] Kerry Wise DO [address] [place] [address] Test Results (02/12) Allergies Active Allergy Reactions Criticality Noted Date Comments Alendronate Muscle pain 05/30/2017 Muscle pain in arms came on very quickly per patient Hydrochlorothiazide 05/24/2022 Hyponatremia Moxifloxacin Unknown Low 07/29/2001 Avelox Penicillins Hives Medium 08/28/1999 Sulfa Antibiotics Hives Low 03/08/2000 Venlafaxine Hydrochloride Hives Low 08/28/1999 documented as of this encounter (statuses as of 02/13/2024) Medications triamcinolone acetonide (ARISTOCORT) 0.1 % cream [...] 02/11/2024 Vitamin D (Cholecalciferol ) 50 MCG (1999 UT) Oral Capsule Take 2,000 Units by [...] Saturday only. 40 Tablet 3 4 Active Losartan Potassium 100 MG Oral Tablet (Cozaar)Indicati ons:HTN, goal below 150/90,Palpitati ons Take 1 Tablet by mouth in the morning. 90 Tablet 1 4 Active LORazepam 0.5 MG Oral Tablet (Ativan)Indicati ons:Situational anxiety Take 1 Tablet by mouth 2 times a day as needed for Anxiety. 15 Tablet 4 Active documented as of this encounter (statuses as of 02/13/2024) Active Problems Problem Noted Date Diagnosed Date [...] as of this encounter (statuses as of 02/13/2024) Resolved Problems Problem Noted Date Diagnosed Date [...] as of this encounter (statuses as of 02/13/2024) Immunizations Name Administration Dates Next Due COVID-19 [...] (Prevnar) 08/31/2014 Pneumococcal Conjugate Vacci ne, 20-valent ([id number]) 01/07/2024 Pneumococcal Polysaccharide PPV23 (Pneumovax) 05/25/2013 RSV [...] No 03/08/2023 Does the household have a [facility] source of income? (Household - for ages [...] on file documented as of this encounter Miscellaneous Notes * Telephone Encounter - Vianney Davis LPN - 02/13/2024 2:43 PM EST Report received and forwarded to Dr. Wise for review. * Telephone Encounter - Ariana Nunez LPN - 02/13/2024 1:32 PM EST Darya returned call. Copy was already sent to ordering provider. Faxing over copy now. * Telephone Encounter - Ariana Nunez LPN - 02/13/2024 11:31 AM EST Called [facility]. Transferred to Darya in respiratory services and got her voicemail. Message left to call back. * Telephone Encounter - Kerry Wise DO - 02/11/2024 4:44 PM EST Pt had nocturnal pulse ox through sleep medicine and [facility]. Please call [facility] to see if the result is back and ask they fax to ordering provider and to us here. documented in this encounter Plan of Treatment Upcoming Encounters Date Type Department Care Team (Late st Contact Info) Description 05/26/2024 9:30 AM EDT Office Visit Cardiology, [facility] [place] [address] Tyron Echeverria MD [address] [facility] [place] [address] 06/15/2024 9:45 AM EDT Office Visit Dermatology [facility] [place] [address] [facility] [place], [place] [address] Tai Quach MD 200 [facility] [place], [place] [address] 07/10/2024 1:00 PM EDT Office Visit Sleep Disorders Ctr [facility] [place] [address] [place] [phone] Kathy Fajardo, [address] [place] [address] 07/13/2024 1:30 PM EDT Nurse Only Rheumatology [address] [place] [address] Pf, Nurse Rheum [address] [place] [address] [place] [address] 01/25/2025 1:40 PM EST Office Visit Rheumatology [address] [place], [place] [address] Herbie Lorenzo MD [address] [place] [address] [place], [place] [address] Health Maintenance Due Date Last Done Comments [...] 10/2022, 07/30/2022, Additional history exists Pneumococcal Vaccine: 65+ Years Completed 01/07/2024, 08/31/2014, 05/25/2013 VITAMIN D LEVEL ONCE IN A LIFETIME-USE SMARTSET# [id number] Completed 01/10/2024, 11/06/2022, 04/12/2022, Additional history exists [...] Not on filedocumented as of this encounter Advance Directives Documents on File Type Date Recorded Patient Fire Control Technician Expl anation Power of Channel Marketing Manager 06/28/2022 POWER OF A TTORNEY * Full Code (Latest Code Status on File) Date Activated Date Inactivated Comments 11/29/2010 4:27 PM 12/02/2010 2:57 PM This order r eflects the patients wishes and were consensually agreed upon. Care Teams Crime Scene Technician Relationship Specialty Start Date End Date Kerry Wise DO [address] [place] [address] PCP - General Family Medicine 09/11/23 documented as of this encounter
--- OUTSIDE RECORDS SUMMARY | 2024-03-03 18:31 | External Medical Summary | Summary of Care ---
Author Name Unknown Organization [facility] Address [address] [place] [address] Phone [phone] Care Team Providers Care Asbestos Worker Name Role Phone Kerry Wise DO Primary Care Provider [phone] Reason for Visit * Reason Comments Follow Up Encounter Details Date Type Department Care Team (Late st Contact Info) Description 02/11/2024 3:40 PM EST Office Visit Family Practice [facility] [address] [place] [address] Kerry Wise DO [address] [place] [address] Situational anxiety*; HTN, goal below 150/90; ARNALDO on CPAP Allergies Active Allergy Reactions Criticality Noted Date Comments Alendronate Muscle pain 05/30/2017 Muscle pain in arms came on very quickly per patient Hydrochlorothiazide 05/24/2022 Hyponatremia Moxifloxacin Unknown Low 07/29/2001 Avelox Penicillins Hives Medium 08/28/1999 Sulfa Antibiotics Hives Low 03/08/2000 Venlafaxine Hydrochloride Hives Low 08/28/1999 documented as of this encounter (statuses as of 02/11/2024) Medications triamcinolone acetonide (ARISTOCORT) 0.1 % cream Apply topically to affected area 2 times a day. To affected area. 15 g 5 08/30/19 18 Active Denosumab 60 MG/ML Subcutaneous SolutionIndicati ons:every 6mos Inject 60 mg under the skin once. Active Elastic Bandages & Supports (MEDICAL COMPRESSION STOCKINGS) MISCIndications: Varicose veins of both legs with edema 20mm to 30mm Knee high Wear during the day and take off at night for swelling. 2 Each 12/16/19 19 Active Aspirin EC 81 MG Oral Tablet Delayed Release Take by mouth 1 Tablet in the morning. 07/04/19 22 Active Additional Information Patient taking differently:81 mg [...] day. To affected area. 15 g 1 03/12/19 24 Active oxyBUTYnin Chloride ER 5 MG Oral Tablet Extended Release 24 Hour (Ditropan XL) Take 1 Tablet by mouth in the morning. 90 Tablet 3 04/12/19 24 Active Additional Information Patient taking differently:5 mg Oral Daily(AM),Takes in the evening., Reported on 02/11/2024 dilTIAZem HCl ER Beads 240 MG Oral Capsule Extended Release 24 HourIndications: HTN, goal below 140/90 Take 1 Capsule by mouth in the morning. 90 Capsule 3 06/06/19 24 Active Terazosin HCl 1 MG Oral Capsule (Hytrin) Take 1 Capsule by mouth at bedtime. 90 Capsule 3 06/06/19 24 Active Ketoconazole 2 % External CreamIndications :Cutaneous candidiasis Apply topically to affected area 2 times a day for 14 days. Apply to vulva 30 g 1 07/10/19 24 Active Ondansetron HCl 4 MG Oral TabletIndication s:Nausea without vomiting Take 1 Tablet by mouth every 8 hours as needed for Nausea. 30 Tablet 08/28/19 24 Active Carvedilol 12.5 MG Oral Tablet (Coreg) Take 1 Tablet by mouth in the morning and 1 Tablet before bedtime. 204 Tablet 3 10/22/19 24 Active Atorvastatin Calcium 40 MG Oral Tablet (Lipitor)Indicat ions:Asymptomati c carotid artery stenosis, unspecified laterality,Dysli pidemia, goal LDL below 100 Take 1 Tablet by mouth at bedtime. 90 Tablet 3 11/11/19 24 Active Furosemide 20 MG Oral Tablet (Lasix)Indicatio ns:HTN, goal below 140/90 Take 1 Tablet by mouth once a day on Saturday, Saturday, and Saturday only. 40 Tablet 3 12/23/19 24 Active Losartan Potassium 100 MG Oral Tablet (Cozaar)Indicati ons:HTN, goal below 150/90,Palpitati ons Take 1 Tablet by mouth in the morning. 90 Tablet 1 02/05/20 24 Active LORazepam 0.5 MG Oral Tablet (Ativan)Indicati ons:Situational anxiety Take 1 Tablet by mouth 2 times a day as needed for Anxiety. 15 Tablet 02/11/20 24 Active LORazepam 0.5 MG Oral Tablet (Ativan)Indicati ons:Situational anxiety Take 1 Tablet by mouth 2 times a day as needed for Anxiety. 15 Tablet 10/30/19 24 024 Discontin ued(Refil l) documented as of this encounter (statuses as of 02/11/2024) Active Problems Problem Noted Date Diagnosed Date [...] as of this encounter (statuses as of 02/11/2024) Resolved Problems Problem Noted Date Diagnosed Date [...] as of this encounter (statuses as of 02/11/2024) Immunizations Name Administration Dates Next Due COVID-19 [...] (Prevnar) 08/31/2014 Pneumococcal Conjugate Vacci ne, 20-valent ([id number]) 01/07/2024 Pneumococcal Polysaccharide PPV23 (Pneumovax) 05/25/2013 RSV [...] Passive Smoke Exposure: Past Smokeless Tobacco: Never Tobacco Cessation:Counseling Given: Yes Alcohol Use Standard Drinks/Week Comments Yes 0 [...] No 03/08/2023 Does the household have a re gular source of income? (Household - for ages [...] on file documented as of this encounter Last Filed Vital Signs Vital Sign Reading Time Taken Comments Blood Pressure 134/72 02/11/2024 3:41 PM EST Pulse 66 02/11/2024 3:41 PM EST Temperature 36.8 C (98.2 F) 02/11/2024 3:41 PM ES T Respiratory Rate 14 02/11/2024 3:41 PM EST Oxygen Saturation 98% 02/11/2024 3:41 PM EST Inhaled Oxygen Concentration - - Weight 86 kg (189 lb 8 oz) 02/11/2024 3:41 PM ES T Height 153.7 cm (5' 0.5") 02/11/2024 3:41 PM EST Body Mass Index 36.4 02/11/2024 3:41 PM EST documented in this encounter Progress Notes * Kerry Wise, DO - 02/11/2024 3:59 PM EST SUBJECTIVE: Chief Complaint Patient presents with Follow Up HPI: Emily Middleton is a 73 year old female who presents today for regular return. Pt feels she is doing ok. Did not tolerate Celexa after two doses due to nausea. She does not want to start medication presently. She has some anxiety due to upcoming knee surgery. She plans to see how that goes first. Pt notes that she is doing well otherwise. She has questions regarding a nocturnal pulse ox. She has not received results. This was done through [facility] PHM: Patient Active Problem List Diagnosis GENERAL OSTEOARTHROSIS Dyslipidemia, goal LDL below 100 Diverticulosis of colon HTN, goal below 150/90 Palpitations Severe obesity with body mass index (BMI) of 35.0 to 39.9 with serious comorbidity (HCC) Hx of atypical nevus Hx of actinic keratosis Vitamin D insufficiency Fatty liver Senile osteoporosis It band syndrome, unspecified laterality History of kidney cancer Migraine with aura, not intractable, without status migrainosus Thyroid nodule Multiple thyroid nodules HTN, goal below 140/90 Prediabetes Current Outpatient Medications Medication Sig Dispense Refill triamcinolone acetonide (ARISTOCORT) 0.1 % cream Apply topically to affected area 2 times a day. Toaffected area. 15 g 5 Denosumab 60 MG/ML Subcutaneous Solution Inject 60 mg under the skin once. Aspirin EC 81 MG Oral Tablet Delayed Release Take by mouth 1 Tablet in the morning. (Patient takingdifferently: Take 1 Tablet by mouth in the morning. Takes in the evening..) Vitamin D (Cholecalciferol) 50 MCG (2000 UT) Oral Capsule Take 2,000 Units by mouth in the morning. Melatonin 1 MG Oral Tablet Take 1 Tablet by mouth at bedtime. Triamcinolone Acetonide 0.5 % External Cream (Aristocort) Apply topically to affected area 2 times a day. To affected area. 15 g 1 oxyBUTYnin Chloride ER 5 MG Oral Tablet Extended Release 24 Hour (Ditropan XL) Take 1 Tablet by mouth in the morning. (Patient taking differently: Take 1 Tablet by mouth in the morning. Takes in the evening. .) 90 Tablet 3 dilTIAZem HCl ER Beads 240 MG Oral Capsule Extended Release 24 Hour Take 1 Capsule by mouth in the morning. 90 Capsule 3 Terazosin HCl 1 MG Oral Capsule (Hytrin) Take 1 Capsule by mouth at bedtime. 90 Capsule 3 Ketoconazole 2 % External Cream Apply topically to affected area 2 times a day for 14 days. Apply to vulva 30 g 1 Ondansetron HCl 4 MG Oral Tablet Take 1 Tablet by mouth every 8 hours as needed for Nausea. 30 Tablet 0 Carvedilol 12.5 MG Oral Tablet (Coreg) Take 1 Tablet by mouth in the morning and 1 Tablet before bedtime. 204 Tablet 3 LORazepam 0.5 MG Oral Tablet (Ativan) Take 1 Tablet by mouth 2 times a day as needed for Anxiety. 15 Tablet 0 Atorvastatin Calcium 40 MG Oral Tablet (Lipitor) Take 1 Tablet by mouth at bedtime. 90 Tablet 3 Furosemide 20 MG Oral Tablet (Lasix) Take 1 Tablet by mouth once a day on Saturday, Saturday, and Saturday only. 40 Tablet 3 Losartan Potassium 100 MG Oral Tablet (Cozaar) Take 1 Tablet by mouth in the morning. 90 Tablet 1 Elastic Bandages & Supports (MEDICAL COMPRESSION STOCKINGS) MISC 20mm to 30mm Knee high Wear during the day and take off at night for swelling. 2 Each 0 No current facility-administered medications for this visit. Past Medical History: Diagnosis Date Adjustment disorder with depressed mood Diverticulosis of colon Dyslipidemia, goal to be determined Fibrous papule of nose 10/20/2012 Generalized osteoarthritis HTN, goal to be determined Migraine with aura Neoplasm of kidney Senile osteoporosis 05/15/2017 Past Surgical History: Procedure Laterality Date BUNION CORRECTED WITH DOUBLE OSTEOTOMY COLONOSCOPY 11/29/2005 negative exam/repeat in 10 years/Dr Haines COLONOSCOPY 05/31/2011 normal, recheck 10 yrs, [facility]aki FNA BIOPSY, INCLUDING US GUIDANCE; FIRST LESION 08/29/2021 KNEE ARTHROSCOPY/SURGERY LIGATE/CUT OVIDUCT(S) Tubal Ligation MAMMOGRAM - BILATERAL 05/12/2001 Birad 1, yearly exam, benign MAMMOGRAM - BILATERAL 07/08/2002 birad code 1 MAMMOGRAM - BILATERAL 07/26/2005 Birad code 2/benign findings MAMMOGRAM - BILATERAL 07/29/2006 birad code 2 MAMMOGRAM - BILATERAL 07/31/2007 birad code 2 MAMMOGRAM - BILATERAL 08/02/2008 birad 2 MAMMOGRAM SCREENING BILATERAL 08/04/2009 nl MAMMOGRAM SCREENING-BILATERAL 07/13/2003 negative findings, yearly mammograms appropriate, birad code 1 PAP SCREEN 12/28/2003 satisfactory for evaluation, dr daily PAP SCREEN 06/27/2009 negative for malignancy PARTIAL REMOVAL OF KIDNEY 11/29/2010 NEPHRECTOMY PARTIAL performed by FRNAK ALVARES at OR [facility] [place] COLSC FLX W/RMVL OF TUMOR POLYP LESION SNARE TQ N/A 06/09/2021 REMOVAL OF TONSILS, UNDER AGE 10 TENDON SHEATH INCISION, FINGER 05/30/2010 trigger finger TOTAL HIP REPLACEMENT & PROSTHESIS 08/10/2000 right hip TOTAL HYSTERECTOMY QUINN (Total Abdominal Hysterectomy) Review of patient's allergies indicates: Allergen Reactions Penicillins Hives Fosamax [Alendronate] Muscle pain Muscle pain in arms came on very quickly per patient Hydrochlorothiazide Hyponatremia Moxifloxacin Unknown Avelox Sulfa Antibiotics Hives Venlafaxine Hydrochloride Hives Family History Problem Relation Name Age of Onset Cancer Mother oral cancer Heart Disorder Mother bypass surgery Hypertension Mother Neurological Disorder Mother dementia Uterine cancer Mother Skin cancer Mother Gastro-intestinal disorder Father ulcer Hypertension Father Heart Disorder Father bypass surgery Renal Hx Father Prostate cancer Father Diabetes Sister Gastro-intestinal disorder Sister No Known Problems Daughter No Known Problems Son No Known Problems Son Family Status Relation Status Mo at age 93 Fa at age 84 Sis Alive Sis Alive Macey Alive Son Alive Son Alive Social History Tobacco Use Smoking status: Former Current packs/day: 0.00 Average packs/day: 1 pack/day for 10.0 years (10.0 ttl pk-yrs) Types: Cigarettes Start date: 02/25/1969 Quit date: 02/25/1979 Years since quittin.9 Passive exposure: Past Smokeless tobacco: Never Substance Use Topics Alcohol use: Yes Comment: moderation, glass of wine 3-4 days a week Vaping/E-Cigarette Use Vaping/E-Cigarette Use Never User Passive Exposure No Counseling Given? No Vaping/E-Cigarette Substances Nicotine No Other No Flavoring No THC No Cannabidiol (CBD) No Vaping/E-Cigarette Devices Disposable No Pre-filled or Refillable Cartridge No Refillable Tank No Pre-filled Pod No REVIEW OF SYSTEMS: Review of Systems Constitutional: Negative for chills, fatigue, fever and unexpected weight change. Respiratory: Negative for cough, chest tightness, shortness of breath and wheezing. Cardiovascular: Negative for chest pain, palpitations and leg swelling. Gastrointestinal: Negative for abdominal pain, constipation, diarrhea, nausea and vomiting. Musculoskeletal: Negative for arthralgias, gait problem and joint swelling. Skin: Negative for color change, pallor and rash. OBJECTIVE: BP 134/72 (BP Site: Left Arm, BP Position: Sitting, BP Cuff Size: Large) | Pulse 66 | Temp 98.2 F(36.8 C) (Tympanic) | Resp 14 | Ht 5' 0.5" (1.537 m) | Wt 189 lb 8 oz (86 kg) | SpO2 98% | BMI 36.40 kg/m | BSA 1.92 m PHYSICAL EXAM: Physical Exam Constitutional: General: She is not in acute distress. Appearance: She is well-developed. Cardiovascular: Rate and Rhythm: Normal rate and regular rhythm. Heart sounds: Normal heart sounds. No murmur heard. No friction rub. No gallop. Pulmonary: Effort: Pulmonary effort is normal. No respiratory distress. Breath sounds: Normal breath sounds. No wheezing or rales. Abdominal: General: Bowel sounds are normal. There is no distension. Palpations: Abdomen is soft. Tenderness: There is no abdominal tenderness. There is no guarding. Musculoskeletal: General: No tenderness or deformity. Normal range of motion. Skin: General: Skin is warm and dry. Coloration: Skin is not pale. Findings: No erythema or rash. Neurological: Mental Status: She is alert and oriented to person, place, and time. ASSESSMENT/PLAN: (F41.8) Situational anxiety (primary encounter diagnosis) Plan: LORazepam 0.5 MG Oral Tablet (Ativan) Refill sent. Pt uses sparingly. Will consider further controller medication after surgery. (I10) HTN, goal below 150/90 Plan: BP controlled. No changes. (G47.33) ARNALDO on CPAP Plan: Pt will remain on CPAP. Will reach out to [facility] to see if they are able to fax result to sleep medicine provider. Follow-up: 3 months Total time today including reviewing chart before the visit, pertinent labs, imaging reports, face to face time, and documentation time was 33 minutes. Kerry Wise DO documented in this encounter Nursing Notes * Vianney Davis LPN - 02/11/2024 3:39 PM EST Patient here for routine follow up visit. States she did not tolerate antidepressant. Has surgery scheduled 03/03 for right knee by Dr. August. documented in this encounter Plan of Treatment Upcoming Encounters Date Type Department Care Team (Late st Contact Info) Description 05/26/2024 9:30 AM EDT Office Visit Cardiology, [facility] [address] [address] Tyron Echeverria MD [address] [address] 06/15/2024 9:45 AM EDT Office Visit Dermatology [facility] [place] [address] [facility] [place] [address] Tai Quach MD [address] [facility] [place] [address] 07/10/2024 1:00 PM EDT Office Visit Sleep Disorders Ctr [facility] [place] [address] [place] [phone] Kathy Fajardo, DO [address] [place] [address] 07/13/2024 1:30 PM EDT Nurse Only Rheumatology [address] [place] [address] Pf, Nurse Rheum [address] [place] [address] [place] [address] 01/25/2025 1:40 PM EST Office Visit Rheumatology [address] [place] [address] Herbie Lorenzo MD [facility] [employer] [facility] [place] [address] Health Maintenance Due Date Last Done Comments Adult Wellness Visit 07/03/2023 07/02/2022 Albumin/Creatinine Ratio 11/03/2024 11/03/2021 GFR 01/02/2025 01/03/2024, 02/2023, 03/12/2023, Additional history exists HbA1c 01/02/2025 01/03/2024, 03/28, 12/26/2020, Additional history exists Depression Screening 02/10/2025 02/11/2024 DXA Scan 03/06/2025 03/06/2023, 02/25, 02/06/2021, Additional history exists DTap/Tdap Vaccines (4 - Td or Tdap) 11/20/2033 11/21/2023, 09/02/2017, 08/16/2007, Additional history exists Fecal Occult Blood Test Discontinued 12/21/2003 Zoster Vaccines Completed 08/22/2018, 040 10/2018, 05/22/2018, Additional history exists Colonoscopy Discontinued 06/09/2021 Colorectal Cancer Screening Discontinued Influenza Vaccine (FLU shot) Completed 11/27/2023, 11/27/2023, 11/29/2022, Additional history exists COVID-19 Vaccine Completed 12/03/2023, 10/2022, 07/30/2022, Additional history exists Pneumococcal Vaccine: 65+ Years Completed 01/07/2024, 08/31/2014, 05/25/2013 VITAMIN D LEVEL ONCE IN A LIFETIME-USE SMARTSET# [id number] Completed 01/10/2024, 11/06/2022, 04/12/2022, Additional history exists [...] Not on filedocumented as of this encounter Visit Diagnoses Diagnosis Situational anxiety- Primary Other anxiety states HTN, goal below 150/90 ARNALDO on CPAP Obstructive sleep apnea (adult) (pediatric) documented in this encounter Advance Directives Documents on File Type Date Recorded Patient Planner Intern Expl anation Power of Food And Beverage Service Manager 06/28/2022 POWER OF A TTORNEY * Full Code (Latest Code Status on File) Date Activated Date Inactivated Comments 11/29/2010 4:27 PM 12/02/2010 2:57 PM This order r eflects the patients wishes and were consensually agreed upon. Care Teams Asbestos Worker Relationship Specialty Start Date End Date Kerry Wise DO [address] [place] [address], [place] [address] PCP - General Family Medicine 09/11/23 documented as of this encounter
--- OUTSIDE RECORDS SUMMARY | 2024-03-03 18:31 | External Medical Summary | Summary of Care ---
Author Name Unknown Organization [facility] Address [address] [place] [address] Phone [phone] Care Team Providers Care Helium Arc Welder Name Role Phone Kerry Wise DO Primary Care Provider Reason for Visit * Reason Onset Date Comments Test Results 02/18/2024 Noc ox Encounter Details Date Type Department Care Team (Late st Contact Info) Description 02/18/2024 Telephone Sleep Disorders Ctr [facility] [address] [facility] [address] Kathy Fajardo DO [address] [facility] [address] Test Results (Noc ox) Allergies Active Allergy Reactions Criticality Noted Date Comments Alendronate Muscle pain 05/30/2017 Muscle pain in arms came on very quickly per patient Hydrochlorothiazide 05/24/2022 Hyponatremia Moxifloxacin Unknown Low 07/29/2001 Avelox Penicillins Hives Medium 08/28/1999 Sulfa Antibiotics Hives Low 03/08/2000 Venlafaxine Hydrochloride Hives Low 08/28/1999 documented as of this encounter (statuses as of 02/18/2024) Medications triamcinolone acetonide (ARISTOCORT) 0.1 % cream [...] as of this encounter (statuses as of 02/18/2024) Active Problems Problem Noted Date Diagnosed Date [...] as of this encounter (statuses as of 02/18/2024) Resolved Problems Problem Noted Date Diagnosed Date [...] as of this encounter (statuses as of 02/18/2024) Immunizations Name Administration Dates Next Due COVID-19 [...] (Prevnar) 08/31/2014 Pneumococcal Conjugate Vacci ne, 20-valent ([id number]) 01/07/2024 Pneumococcal Polysaccharide PPV23 (Pneumovax) 05/25/2013 RSV [...] No 03/08/2023 Does the household have a [facility] source [facility] income? (Household - for ages [...] encounter Miscellaneous Notes * Telephone Encounter - Cata Mosquera LPN - 02/18/2024 1:14 PM EST MyG sent. * Telephone Encounter - Kathy Fajardo DO - 02/18/2024 12:57 PM EST Please let pt know Nox showed resolution of Nocturnal Hypoxemia with PAP Overnight Oximetry 02/02/24 SpO2<= 89% 3 mins 36 sec SpO2<= 88% 1 mins 44 sec SpO2 elba 84% PAP DL confirms overlapping PAP usage (AHI 0; [id number]) documented in this encounter Plan of Treatment Upcoming Encounters Date Type Department Care Team (Late st Contact Info) Description 05/26/2024 9:30 AM EDT Office Visit Cardiology, [facility] [address] [address] Tyron Echeverria MD [address] [address] 06/15/2024 9:45 AM EDT Office Visit Dermatology [facility] [address] [facility] [place] [address] Tai Quach MD [address] [facility] [place] [address] 07/10/2024 1:00 PM EDT Office Visit Sleep Disorders Ctr [facility] [address] [phone] Kathy Fajardo DO [address] [place] [address] 07/13/2024 1:30 PM EDT Nurse Only Rheumatology [address] [place] [address] Pf, Nurse Rheum [facility] [place] [address] 01/25/2025 1:40 PM EST Office Visit Rheumatology [facility] [place] [address] [facility] [place] [address] Herbie Lorenzo MD [address] [facility] [place] [address] Health Maintenance Due Date Last Done Comments [...] Test Discontinued 12/21/2003 Zoster Vaccines Completed 08/22/2018, 0 10/2018, 05/22/2018, Additional history exists Colonoscopy Discontinued 06/09/2021 Colorectal Cancer Screening Discontinued Influenza Vaccine (FLU shot) Completed 11/27/2023, 11/27/2023, 11/29/2022, Additional history exists COVID-19 Vaccine Completed 12/03/2023, 10/2022, 07/30/2022, Additional history exists Pneumococcal Vaccine: 65+ Years Completed 01/07/2024, 08/31/2014, 05/25/2013 VITAMIN D LEVEL ONCE IN A LIFETIME-USE SMARTSET# [id number] Completed 01/10/2024, 11/06/2022, 04/12/2022, Additional history exists [...] Documents on File Type Date Recorded Patient Pan Devulcanizer Expl anation Power of Video Poker Floorman 06/28/2022 POWER OF A TTORNEY * Full Code (Latest Code Status on File) Date Activated Date Inactivated Comments 11/29/2010 4:27 PM 12/02/2010 2:57 PM This order r eflects the patients wishes and were consensually agreed upon. Care Teams Helium Arc Welder Relationship Specialty Start Date End Date Kerry Wise DO [address] [facility] [place] [address] PCP - General Family Medicine 09/11/23 documented as of this encounter
--- OUTSIDE RECORDS SUMMARY | 2024-03-03 18:31 | External Medical Summary | Summary of Care ---
Author Name Unknown Organization [facility] Address [address] [place] [address] Phone [phone] Care Team Providers Care Cook Helper Preserves Name Role Phone Kerry Wise DO Primary Care Provider Reason for Visit * Reason Comments eRx-Medication Refill Encounter Details Date Type Department Care Team (Late st Contact Info) Description 02/03/2024 Refill Cardiology, [facility] [address] [place] [address] Fide Gonzales PA-C [address] [place] [address] HTN, goal below 150/90; Palpitations Allergies Active Allergy Reactions Criticality Noted Date Comments Alendronate Muscle pain 05/30/2017 Muscle pain in arms came on very quickly per patient Hydrochlorothiazide 05/24/2022 Hyponatremia Moxifloxacin Unknown Low 07/29/2001 Avelox Penicillins Hives Medium 08/28/1999 Sulfa Antibiotics Hives Low 03/08/2000 Venlafaxine Hydrochloride Hives Low 08/28/1999 documented as of this encounter (statuses as of 02/05/2024) Medications triamcinolone acetonide (ARISTOCORT) 0.1 % cream Apply topically to affected area 2 times a day. To affected area. 15 g 5 08/30/19 18 Active Denosumab 60 MG/ML Subcutaneous SolutionIndicat ions:every 6mos Inject 60 mg under the skin once. Active Elastic Bandages & Supports (MEDICAL COMPRESSION STOCKINGS) MISCIndications :Varicose veins of both legs with edema 20mm to 30mm Knee high Wear during the day and take off at night for swelling. 2 Each 12/16/19 19 Active Aspirin EC 81 MG Oral Tablet Delayed Release Take by mouth 1 Tablet in the morning. 07/04/19 22 Active Additional Information Patient taking differently:81 mg Oral Daily(AM),Takes in the evening., Reported on 01/13/2024 Vitamin D (Cholecalcifero l) 50 MCG (1999) Oral Capsule Take 2,000 Units by mouth in the morning. Active Melatonin 1 MG Oral Tablet Take 1 Tablet by mouth at bedtime. Active Triamcinolone Acetonide 0.5 % External Cream (Aristocort)Ind ications:Skin lesion Apply topically to affected area 2 times a day. To affected area. 15 g 1 03/12/19 24 Active oxyBUTYnin Chloride ER 5 MG Oral Tablet Extended Release 24 Hour (Ditropan XL) Take 1 Tablet by mouth in the morning. 90 Tablet 3 04/12/19 24 Active Additional Information Patient taking differently:5 mg Oral Daily(AM),Takes in the evening., Reported on 01/13/2024 dilTIAZem HCl ER Beads 240 MG Oral Capsule Extended Release 24 HourIndications :HTN, goal below 140/90 Take 1 Capsule by mouth in the morning. 90 Capsule 3 06/06/19 24 Active Terazosin HCl 1 MG Oral Capsule (Hytrin) Take 1 Capsule by mouth at bedtime. 90 Capsule 3 06/06/19 24 Active Ketoconazole 2 % External CreamIndication s:Cutaneous candidiasis Apply topically to affected area 2 times a day for 14 days. Apply to vulva 30 g 1 07/10/19 24 Active Ondansetron HCl 4 MG Oral TabletIndicatio ns:Nausea without vomiting Take 1 Tablet by mouth every 8 hours as needed for Nausea. 30 Tablet 08/28/19 24 Active Carvedilol 12.5 MG Oral Tablet (Coreg) Take 1 Tablet by mouth in the morning and 1 Tablet before bedtime. 204 Tablet 3 10/22/19 24 Active LORazepam 0.5 MG Oral Tablet (Ativan)Indicat ions:Situationa l anxiety Take 1 Tablet by mouth 2 times a day as needed for Anxiety. 15 Tablet 10/30/19 24 Active Atorvastatin Calcium 40 MG Oral Tablet (Lipitor)Indica tions:Asymptoma tic carotid artery stenosis, unspecified laterality,Dysl ipidemia, goal LDL below 100 Take 1 Tablet by mouth at bedtime. 90 Tablet 3 11/11/19 24 Active Furosemide 20 MG Oral Tablet (Lasix)Indicati ons:HTN, goal below 140/90 Take 1 Tablet by mouth once a day on Saturday, Saturday, and Saturday only. 40 Tablet 3 12/23/19 24 Active Losartan Potassium 100 MG Oral Tablet (Cozaar)Indicat ions:HTN, goal below 150/90,Palpitat ions Take 1 Tablet by mouth in the morning. 90 Tablet 1 02/05/20 24 Active Losartan Potassium 100 MG Oral Tablet (Cozaar)Indicat ions:HTN, goal below 150/90,Palpitat ions Take 1 Tablet by mouth in the morning. 90 Tablet 3 02/22/20 23 024 Discontinued documented as of this encounter (statuses as of 02/05/2024) Active Problems Problem Noted Date Diagnosed Date Prediabetes 01/06/2024 Overview: Per Prediabetes protocol HTN, [...] as of this encounter (statuses as of 02/05/2024) Resolved Problems Problem Noted Date Diagnosed Date [...] as of this encounter (statuses as of 02/05/2024) Immunizations Name Administration Dates Next Due COVID-19 [...] (Prevnar) 08/31/2014 Pneumococcal Conjugate Vacci ne, 20-valent ([id number]) 01/07/2024 Pneumococcal Polysaccharide PPV23 (Pneumovax) 05/25/2013 RSV [...] Answer Date Recorded PHQ Adult Total Score 0 03/08/2023 Hunger Vital Sign Answer Date Recorded Within [...] encounter Miscellaneous Notes * Telephone Encounter - Jorge Alberto Medley [facility] - 02/05/2024 11:01 AM EST Signed Prescriptions: Disp Refills Losartan Potassium 100 MG Oral Tablet (Coz*90 Tab*1 Sig: Take 1 Tablet by mouth in the morning.Authorizing Provider: FIDE GONZALES User: JORGE ALBERTO MEDLEY documented in this encounter Plan of Treatment Upcoming Encounters Date Type Department Care Team (Late st Contact Info) Description 02/06/2024 9:30 AM EST Imaging Radiology [address] [facility] [place] [address] 02/11/2024 3:40 PM EST Office Visit Family Practice [address] [place] [address] [address] [place] [address] Kerry Wise DO [address] [place] [address] 05/26/2024 9:30 AM EDT Office Visit Cardiology, [facility] 132 [facility] [address] [facility] [place] [address] Tyron Echeverria MD 132 [facility] [place] [address] 06/15/2024 9:45 AM EDT Office Visit Dermat[facility] [address] [facility] [address] Tai Quach MD [address] [place], [place] [address] 07/10/2024 1:00 PM EDT Office Visit [facility] Disorders Ctr Sophia Deluca [place] [address] [place] [id number] Kathy Fajardo, [address] [place] [address] 07/13/2024 1:30 PM EDT Nurse Only Rheumatology [address] [place] [address] Pf, Nurse Rheum [address] [place] [address] [place] [address] 01/25/2025 1:40 PM EST Office Visit Rheumatology [address] [place] [address] Herbie Lorenzo MD [address] [place] [address] [place] [address] Health Maintenance Due Date Last Done Comments Adult Wellness Visit 07/03/2023 07/02/2022 Depression Screening 03/08/2024 03/08/2023 Albumin/Creatinine Ratio 11/03/2024 11/03/2021 GFR 01/02/2025 01/03/2024, 02/2023, 03/12/2023, Additional history exists HbA1c 01/02/2025 01/03/2024, 03/28, 12/26/2020, Additional history exists DXA Scan 03/06/2025 03/06/2023, 02/25, 02/06/2021, Additional [...] D LEVEL ONCE IN A LIFETIME-USE SMARTSET# [id number] Completed 01/10/2024, 11/06/2022, 04/12/2022, Additional history exists [...] as of this encounter Visit Diagnoses Diagnosis HTN, goal below 150/90 Palpitations documented in this encounter Advance Directives Documents on File Type Date Recorded Patient [employer] Power of [employer] Stained Glass 06/28/2022 POWER OF A TTORNEY * Full Code (Latest Code Status on File) Date Activated Date Inactivated Comments 11/29/2010 4:27 PM 12/02/2010 2:57 PM This order r eflects the patients wishes and were consensually agreed upon. Care Teams Cook Helper Preserves Relationship Specialty Start Date End Date Kerry Wise DO [address] [place] [address] PCP - General Family Medicine 09/11/23 documented as of this encounter
[2024-03-03] MEDS: ATORVASTATIN 40 MG TAB PO SCH (20:43)
[2024-03-03] MEDS: oxyBUTYnin chloride 5 MG TAB PO SCH (20:43)
[2024-03-03] MEDS: ASPIRIN 81 MG ECTAB PO SCH (20:43)
[2024-03-03] MEDS: TERAZOSIN HCL 1 MG CAP PO SCH (20:43)
[2024-03-03] MEDS: TRANEXAMIC ACID / 0.7% NACL 1,000 MG/100 ML BAG IV SCH (20:44)
[2024-03-03] MEDS: SENNA 8.6 MG TAB PO SCH (20:44)
[2024-03-03] MEDS: DOCUSATE SODIUM 100 MG CAP PO SCH (20:44)
[2024-03-03] MEDS ORDERED: SENNA 8.6 MG TAB PO SCH (21:00)
[2024-03-03] MEDS: ONDANSETRON INJ 2 MG/ML 2 ML VIAL IV PRN (21:11)
[2024-03-03] MEDS: oxyCODONE HCL IR 5 MG TAB (IMMEDIATE RELEASE) PO PRN (22:57)
[2024-03-03] MEDS: MELATONIN 3 MG TAB PO SCH (22:57)
[2024-03-04] MEDS: LORazepam 0.5 MG TAB PO PRN (00:32)
[2024-03-04 06:56] LABS: Hematocrit (blood only) 33.1 % (37.0-47.0); Hemoglobin 11.2 g/dl (12.0-16.0); Mean Corpuscular Hemoglobin 31.2 pg (25.0-34.0); Mean Corpuscular Hgb Conc 33.8 g/dL (32.0-36.0); Mean Corpuscular Volume 92.2 fL (80.0-100.0); Mean Platelet Volume 8.9 fL (9.4-12.4); Platelet Count 209 K/uL (130-400); RDW Coefficient of Variation 12.6 % (11.5-14.5); RDW Standard Deviation 42.6 fL (36.4-46.3); Red Blood Count 3.59 M/uL (4.20-5.40); White Blood Count 10.94 K/ul (4.8-10.8)
[2024-03-04 07:15] LABS: BUN Creatinine Ratio 24.2 (10-20); Calcium 8.7 mg/dl (8.6-10.3); Creatinine Clr Calc Pharmacy 50.8 ml/min; Potassium 3.9 mmol/L (3.5-5.1)
[2024-03-04] MEDS: dexAMETHasone 10 MG in SYRINGE 0 ML IV SCH (07:58)
[2024-03-04] MEDS: METOCLOPRAMIDE HCL INJ 5 MG/ML 2 ML VIAL IV PRN (08:45)
[2024-03-04] MEDS: MULTIVITAMIN TAB PO SCH (09:46)
[2024-03-04] MEDS: CHOLECALCIFEROL 25 MCG (1000 UNITS) TAB PO SCH (09:47)
[2024-03-04] MEDS: LOSARTAN POTASSIUM 50 MG TAB PO SCH (09:47)
[2024-03-04] MEDS: dilTIAZem HCL 240 MG CAPCR PO SCH (09:48)
[2024-03-04] MEDS: FUROSEMIDE 20 MG TAB PO SCH (09:48)
--- NOTE | 2024-03-04 11:30 | Orthopedic Progress Note ---
Date of Service March 04, 2024 Assessment & Plan (1) Status post right knee replacement: Plan: 73-year-old female postop day 1 from a right knee replacement doing pretty well. Pains controlled. She is neurologically intact. She been mobilizing well. Open to go home today. Plan 1. DVT prophylaxis including thigh-high teds, SCDs, aspirin twice a day. 2. PT/OT. Weight-bear as tolerated. Right total knee protocol. 3. Pain control. Doing well with current pain regimen. Will have her take only 1 pain pill at a time to hopefully help with the nausea. 4. Disposition. Plan to discharge to home with some home health if she does okay in therapy today. Admission and Anticipated Discharge Date Admission Date: March 03, 2024 Subjective 73-year-old female postop day 1 from right knee replacement. She is doing pretty well. Got little bit nauseated with taking the pain medicine. No chest pain or shortness of breath. Not feeling dizzy or like. She was up and walking around last evening doing pretty well. She is hoping to go home today. Physical Exam Physical Exam: Patient is a pleasant middle-age female. That she is lying in bed looks pretty comfortable talking with therapist. Examination the right leg reveals leg to be well aligned. Dressings clean dry and intact. She can dorsiflex and plantarflex her foot appropriately. She is neurologically intact. Respiratory: normal respiratory effort, lungs clear to auscultation Cardiovascular: RRR, no murmur, no edema Gastrointestinal (Abdomen): normal bowel sounds, soft, nontender, no hepatosplenomegaly Results & Data Vital Signs (Past 12 Hours) Vital Signs Temp Pulse Pulse Resp BP Pulse Ox O2 Del Method 03/04/24 09:45 83 169/80 H 03/04/24 07:02 36.7 C 71 16 143/81 H 96 Room Air 03/04/24 03:55 36.9 C 73 16 151/76 H 96 Room Air Laboratory Results Hemoglobin is 11.2. Hematocrit 33.1. Electrolytes are stable.
--- NOTE | 2024-03-05 16:09 | Discharge Summary ---
Date of Service March 05, 2024 Principal Diagnosis Same as "Discharge Diagnosis" noted below under Discharge Instructions. Discharge Data Procedures Performed Operation Date: 03/03/24 12:30 Actual Procedures p Right Total Knee Arthroplasty(Right) - Jaden August MD Ordered Studies 03/03/24 05:00 US - OR guided needle placemen Routine Hospital Course (1) Status post right knee replacement: This is a 73 year old patient admitted on 03/03/23 and underwent total knee arthr oplasty. She tolerated the procedure well and there were no complications. Transferred to the PACU post op and later to the orthopedic floor for further care. She was given ancef for antibiotic prophylaxis. She was also given SUSIE stockings, SCDs, and aspirin for DVT prophylaxis. Hemoglobin, hematocrit, and vital signs were monitored during her hospital stay and remained stable. Did not require any blood transfusions. There were no complications during her hospital stay. By post op day #1 the patient was tolerating a regular diet, pain was reasonably controlled with oral pain medicine, and she was participating in physical therapy. On post op day #1 the patient was discharged home and set up with home health care. She was given printed discharge instructions including prescriptions for extra strength tylenol, aspirin, cefadroxil, ketorolac, zofran, oxycodone, and senokot. Continue physical therapy, weight bearing as tolerated. Continue SUSIE stockings. Follow up approximately 2 weeks post op or sooner if there are problems or concerns. Discharge Plan Discharge Items Patient Disposition: Home - Home Health Services Reason For Visit: Right Knee Osteoarthritis Discharge Diagnosis: Right Knee Replacement Activity: Per Instructions section Weightbearing: Full weightbearing Non-emergency contact: Surgeon Call non-emergency contact if: you have any medication questions Follow-up/Referrals: Kerry Wise DO [Primary Care Provider] - Diet: Regular Addtl Attending Provider Instructions: ACTIVITY RECOMMENDATIONS: Diet: * You may resume previous diet. Physical Therapy: * You will go to physical therapy three times each week for four to six weeks after your surgery in order to regain your knee range of motion and to retrain your knee to work properly. * It is just as important to make sure you are getting your knee perfectly straight as it is to regain your knee bend. * Taking a pain pill an hour before therapy can help you have a more productive and comfortable therapy session. Home Exercise: * You were shown a series of exercises (heel props, heel slides, etc.) in the hospital. Do these exercises three to four times each day including the exercises you were shown in physical therapy. Walking: * Get up and walk several times each day. For the first four weeks, try not to stand or walk for more than one hour at a time. If you do stand or walk for more than one hour, you will not hurt anything, but your knee and leg will likely swell. * As you feel comfortable, you may change from the walker or crutches to a cane and then to independent walking. MEDICATIONS: New Medicine: * You will likely be taking one or more of these medications: 1. Oxycodone - A quick and shorter-acting pain medication. Take one to two tablets every six hours to lessen your pain. 2. Aspirin - Thins your blood to lessen the chance of forming a blood clot. * The most common side effects of pain medicine and iron are nausea and constipation. If nausea or constipation is too much of a problem or if you have any questions about your new medicines or doses, call [facility] at . We will try to help you manage these issues. "VERY IMPORTANT TO READ AND REVIEW" Pain: * The immediate post-operative period after knee replacement surgery is often quite painful. * You are given a prescription for pain medicine. You should take it, as directed, when you need it, especially before physical therapy and before going to bed. Pain that interferes with sleep is very common and can last several months. * You will likely need pain medicine for the first four to six weeks. It will not stop all of the pain. The pain will lessen and as you feel better, you may change to milder pain medicine such as Tylenol. * The most common side effects of pain medicine are nausea and constipation, so don't take more than you need. SPECIAL CARE INSTRUCTIONS: TEDs/Elastic Stockings: * The white elastic stockings help limit swelling and prevent blood clots from forming in your legs. The more you wear them, the more they work. * Wear them for six weeks after knee replacement surgery and four weeks after partial knee replacement. Incision Site Care: * Remove dressing postoperative day 2 and then shower. Keep direct shower pressure off the incision site. * After showering, cover elida with dry gauze and change daily or more frequently if the dressing is getting saturated with drainage. * Use the SUSIE stockings to hold dressing in place. DO NOT apply tape on the skin. * May completely stop using bandage if wound is dry and no drainage * [place] are removed between 2 and 3 weeks post-op. If your follow-up appointment is made before 2 weeks, please have your appointment re- scheduled. It is too early to remove the elida. Prevention of Infection: * Take antibiotics one hour before any dental cleaning, dental work, urological procedure, gastrointestinal procedure or any invasive surgery in order to prevent your new joint from getting infected. * You may get the antibiotics from the doctor performing the procedure or you may call our office at [phone] before and we will call in a prescription to the pharmacy of your choice. Things to Watch For: * Drainage from the incision site that occurs more than one week after your surgery. * Severely increased knee/leg pain or swelling. * Increased redness at the incision site. * Fever above 102 degrees Fahrenheit. * Unusual chest pain or shortness of breath. * Unusual pain or burning with urination. Call [facility] at [phone] with any of the above problems or if you have any questions about your medicines or recovery. FOLLOW UP VISIT: Make an appointment to see your doctor for approximately two weeks after surgery for a progress check and staple removal by calling the office at [phone]. Pending Studies at Discharge: No Stand-Alone Forms: My [facility], Smoking Cessation Medications and DC Order Prescriptions: Continued oxycodone 5 mg tablet 5 - 10 mg PO Q6 PRN (Reason: pain) Qty: 40 0RF Patient Comments: post op Rx Instructions: Take as needed for pain ondansetron 4 mg tablet,disintegrating 4 mg PO Q8 PRN (Reason: nausea) Qty: 20 1RF Patient Comments: post op Rx Instructions: Take as needed for nausea ketorolac 10 mg tablet 10 mg PO Q6 5 Days Qty: 20 0RF Patient Comments: post op Rx Instructions: Take 4 times per day with food for 5 days to lessen pain and swelling. sennosides [Senokot] 8.6 mg tablet 8.6 mg PO BID 14 Days Qty: 28 0RF Patient Comments: post op Rx Instructions: Take two times a day to prevent/treat constipation acetaminophen [Tylenol Extra Strength] 500 mg tablet 1,000 mg PO TID 30 Days Qty: 180 0RF Patient Comments: post op Rx Instructions: Take 3 times per day to lessen pain aspirin [Fuad Low Dose Aspirin] 81 mg tablet,delayed release (DR/EC) 81 mg PO BID 45 Days Qty: 90 0RF Patient Comments: post op cefadroxil 500 mg capsule 500 mg PO BID 7 Days Qty: 14 0RF Patient Comments: post op Rx Instructions: Take 1 cap twice a day to prevent infection carvedilol 12.5 mg tablet 12.5 mg PO BID Rx Instructions: must administer with a meal/food terazosin 1 mg capsule 1 mg PO HS oxybutynin chloride 5 mg tablet 5 mg PO HS furosemide [Lasix] 20 mg tablet 20 mg PO UD Rx Instructions: saturday, saturday, saturday mornings aspirin [Adult Aspirin Regimen] 81 mg tablet,delayed release (DR/EC) 81 mg PO QPM atorvastatin 40 mg Tablet 40 mg PO HS diltiazem HCl 240 mg Capsule,Extended Release 24hr 240 mg PO QAM lorazepam 0.5 mg Tablet 0.25 mg PO HS PRN (Reason: Sleep) ondansetron 4 mg Tablet,Disintegrating 4 mg PO Q8H PRN (Reason: Nausea And Vomiting) losartan 100 mg Tablet 100 mg PO QAM melatonin 1 mg Tablet 1 mg PO HS cholecalciferol (vitamin D3) [Vitamin D3] 50 mcg (2,000 unit) Capsule 50 mcg PO QAM Krames/Other Patient Handouts: Knee Replace Home Recovery Admission Data Admit Date/Time: 03/03/24 14:30 Attending Provider: Jaden August Admit Provider: Jaden August Primary Care Provider: Kerry Wise Other Providers: [facility],Home Health Other Interventions: Discharge Summary Assessment (RN) Last Done: 03/04/24 11:12
== END 2024-03-04 11:52 | disposition home health service (06) ==
LOC: ASU 10:39 → 3E 10:39